=== PATIENT | male | born 1990 | race Two or more races ===

== ENCOUNTER 2024-05-16 13:24 | Emergency (ER) | payer OTHER ==
[~2024-05-16 13:24] MED LIST: TERB30CR8 TP
== END 2024-05-16 13:59 | disposition left against medical advice (07) ==
LOC: ER 13:25
DX: R11.10 Vomiting, unspecified (principal); Z53.21 Procedure and treatment not carried out due to patient leaving prior to being seen by health care provider

== ENCOUNTER 2024-06-11 10:55 | Emergency (ER) | payer MEDICAID, OTHER ==
[~2024-06-11] VITALS: Ht 167.6 cm; Wt 68.0 kg
[2024-06-11 11:06] VITALS: BP 100/66; TEMP 98.6
[2024-06-11 11:26] VITALS: O2SAT 99
== END 2024-06-11 11:27 | disposition home or self-care (01) ==
LOC: ER 11:07
DX: R13.10 Dysphagia, unspecified (principal); F14.10 Cocaine abuse, uncomplicated

== ENCOUNTER 2025-05-26 18:41 | Emergency (ER) | payer OTHER ==
[~2025-05-26] VITALS: Ht 170.2 cm; Wt 64.0 kg
[~2025-05-26 18:41] MED LIST changes: +IBUP-1490 PO; +ONDA4TAB5 PO; +PANT20TA2 PO
[2025-05-26 21:05] LABS: PLATELET COUNT (AUTO) 196 K/uL (150-450); RED BLOOD CELL COUNT(AUTO) 4.37 MIL/uL (4.5-6.0); RED CELL DISTRIBUTION WIDTH 13.3 % (11.5-15.0); WHITE BLOOD COUNT (AUTO) 13.8 K/uL (4.3-11.0)
[2025-05-26] MEDS ORDERED: FAMOTIDINE/PF INJ 20 MG/2 ML VIAL IV ONE (21:07)
[2025-05-26] MEDS ORDERED: ONDANSETRON HCL/PF 4 MG/2 ML VIAL ONE ×2 (21:07→22:19)
[2025-05-26] MEDS: ONDANSETRON HCL/PF 4 MG/2 ML VIAL IV ONE (21:19)
[2025-05-26] MEDS: IV LR 1000 ML 1,000 ML BAG IV ONE (21:19)
[2025-05-26] MEDS: FAMOTIDINE/PF INJ 20 MG/2 ML VIAL IV ONE (21:19)
[2025-05-26 21:44] LABS: ASPARTATE AMINOTRANSFERASE 15.0 U/L (15-37); CALCIUM, SERUM 9.3 mg/dL (8.5-10.1); CREATININE 1.3 mg/dL (0.6-1.3); SODIUM SERUM 144.0 mmol/L (136-145); TOTAL PROTEIN, SERUM 7.8 g/dL (6.4-8.2); UREA NITROGEN, BLOOD 13.0 mg/dL (7-18)
[2025-05-26] MEDS ORDERED: MORPHINE SULFATE INJ 4 MG/ML DISP.SYRIN ONE (22:08)
[2025-05-26] MEDS: MORPHINE SULFATE INJ 2 MG/ML DISP.SYRIN IV ONE (22:11)
[2025-05-26] MEDS ORDERED: HALOPERIDOL LACTATE INJ 5 MG/ML VIAL ONE (22:19)
[2025-05-26] MEDS ORDERED: LORAZEPAM INJ 2 MG/ML VIAL ONE (22:19)
[2025-05-26] MEDS: ONDANSETRON HCL/PF - ER 4 MG/2 ML VIAL IV ONE (22:34)
[2025-05-26] MEDS: HALOPERIDOL LACTATE INJ 5 MG/ML VIAL IV ONE (22:34)
[2025-05-26] MEDS: LORAZEPAM INJ 2 MG/ML VIAL IV ONE (22:34)
[2025-05-26] MEDS ORDERED: IOHEXOL-300 100 ML VIAL IV ONE (23:29)
[2025-05-26] MEDS ORDERED: IV NS 0.9% 250 ML IV ONE (23:29)
[2025-05-27] MEDS ORDERED: ONDA4TAB11 PO (01:13)
[2025-05-27] MEDS ORDERED: CIPR500T5 PO (01:13)
[2025-05-27] MEDS ORDERED: HALOPERIDOL LACTATE INJ 5 MG/ML VIAL ONE (01:36)
[2025-05-27] MEDS ORDERED: LORAZEPAM INJ 2 MG/ML VIAL ONE (01:37)
[2025-05-27] MEDS: HALOPERIDOL LACTATE INJ 5 MG/ML VIAL IV ONE (01:41)
[2025-05-27] MEDS: LORAZEPAM INJ 2 MG/ML VIAL IV ONE (01:41)
[2025-05-27 06:18] VITALS: BP 126/84; TEMP 98.3; O2SAT 99
== END 2025-05-27 06:18 | disposition home or self-care (01) ==
LOC: ER 18:46
DX: K52.9 Noninfective gastroenteritis and colitis, unspecified (principal); R10.9 Unspecified abdominal pain; R11.2 Nausea with vomiting, unspecified; F12.90 Cannabis use, unspecified, uncomplicated; Z79.899 Other long term (current) drug therapy; R51.9 Headache, unspecified
CPT/HCPCS: 99285; 70450; 96374; 96375; 96361; 96376 ×2; 74177; 85025; 80048; 83690; 80076; 36415; J2060 ×2; J1630 ×2; J1308; J2405 ×3; J7120; J7050; Q9967; J2270

== ENCOUNTER 2025-05-28 22:50 | Emergency (ER) | payer OTHER ==
[~2025-05-28] VITALS: Ht 170.2 cm; Wt 64.0 kg
[~2025-05-28 22:50] MED LIST changes: +CIPR500T5 PO; +ONDA4TAB11 PO
[2025-05-28 23:10] VITALS: TEMP 98.7
[2025-05-28 23:45] LABS: PLATELET COUNT (AUTO) 203 K/uL (150-450); RED BLOOD CELL COUNT(AUTO) 4.39 MIL/uL (4.5-6.0); RED CELL DISTRIBUTION WIDTH 13.5 % (11.5-15.0); WHITE BLOOD COUNT (AUTO) 12.3 K/uL (4.3-11.0)
[2025-05-28 23:59] LABS: ASPARTATE AMINOTRANSFERASE 14.0 U/L (15-37); CALCIUM, SERUM 9.6 mg/dL (8.5-10.1); CREATININE 1.4 mg/dL (0.6-1.3); SODIUM SERUM 141.0 mmol/L (136-145); TOTAL PROTEIN, SERUM 7.8 g/dL (6.4-8.2); UREA NITROGEN, BLOOD 13.0 mg/dL (7-18)
[2025-05-29] MEDS ORDERED: KETOROLAC TROMETHAMINE INJ 30 MG/ML VIAL ONE (00:17)
[2025-05-29] MEDS: KETOROLAC TROMETHAMINE INJ 30 MG/ML VIAL IV ONE (00:23)
[2025-05-29 01:01] LABS: APPEARANCE,URINE TURBID (CLEAR); BLOOD, URINE NEGATIVE Ery/uL (NEGATIVE); LEUKOCYTE ESTERASE ,URINE NEGATIVE (NEGATIVE); NITRITE, URINE NEGATIVE (NEGATIVE); UGLUCOSE NEGATIVE (NEGATIVE)
[2025-05-29 01:25] LABS: ADD URINE CULTURE NO; SQUAMOUS EPITHELIAL CELL,UR Few /HPF (None Seen)
[2025-05-29] MEDS ORDERED: MORPHINE SULFATE INJ 2 MG/ML DISP.SYRIN ONE (01:25)
[2025-05-29] MEDS ORDERED: PANTOPRAZOLE 40 MG VIAL ONE (01:26)
[2025-05-29] MEDS ORDERED: ONDANSETRON HCL/PF 4 MG/2 ML VIAL ONE (01:26)
[2025-05-29] MEDS ORDERED: LORAZEPAM INJ 2 MG/ML VIAL ONE (01:27)
[2025-05-29] MEDS: MORPHINE SULFATE INJ 2 MG/ML DISP.SYRIN IV ONE (01:35)
[2025-05-29] MEDS: PANTOPRAZOLE 40 MG VIAL IV ONE (01:35)
[2025-05-29] MEDS: LORAZEPAM INJ 2 MG/ML VIAL IV ONE (01:35)
[2025-05-29] MEDS: ONDANSETRON HCL/PF - ER 4 MG/2 ML VIAL IV ONE (01:35)
[2025-05-29 01:47] LABS: AMPHETAMINE, URINE NEGATIVE (NEGATIVE); BARBITURATE, URINE NEGATIVE (NEGATIVE); BENZODIAZEPINE, URINE NEGATIVE (NEGATIVE); COCCAINE, URINE NEGATIVE (NEGATIVE); OPIATE, URINE NEGATIVE (NEGATIVE)
[2025-05-29 01:53] LABS: CANNABINOID, URINE POSITIVE (NEGATIVE)
[2025-05-29 03:45] VITALS: BP 148/90; O2SAT 98
== END 2025-05-29 03:45 | disposition home or self-care (01) ==
LOC: ER 22:52
DX: R11.10 Vomiting, unspecified (principal); R10.9 Unspecified abdominal pain; F12.10 Cannabis abuse, uncomplicated; F19.10 Other psychoactive substance abuse, uncomplicated; Z79.899 Other long term (current) drug therapy; Z87.19 Personal history of other diseases of the digestive system; Z86.69 Personal history of other diseases of the nervous system and sense organs
CPT/HCPCS: 99284; 85025; 83690; 36415; 80053; 96374; 96375; 80307; 81001; J1885; J2060; J2405 ×2; J2470; J2270